=== PATIENT | male | born 1960 | race Caucasian/White ===

== ENCOUNTER 2021-10-13 06:55 | Day surgery (SDC) | payer BC ==
[~2021-10-13] VITALS: Ht 193 cm; Wt 89.2 kg
[~2021-10-13 06:55] MED LIST: ANTIVERT 25MG25 MG PO; NO HOME MEDICATIONS; PHENERGAN 25 TA25 MG PO
[2021-10-13] MEDS ORDERED: COZAAR 25MG25 MG/TAB PO (07:35)
[2021-10-13] MEDS ORDERED: VITAMIN C500 MG PO (07:36)
[2021-10-13 09:20] VITALS: BP 101/73; PULSE 48; TEMP 97
--- NOTE | 2021-10-13 09:27 | NUR ---
0920 - PT arrives and ambulated 2:1 from cart to chair; non-slip are on. Monitors and warm blankets applied. PT denies nausea and pain. VSS. Verbal room report obtained. PT requested RN call Sharon for update. PT oriented to room and call andersen, within reach.
[2021-10-13 09:35] VITALS: BP 114/76; PULSE 45
--- NOTE | 2021-10-13 09:38 | NUR ---
0935 - RN contacted Sharon, and she was brought in from the waiting room. VSS. PT denies nausea and pain. NO vomiting; expressed desire to be discharged. Call andersen remains within reach; PT has finished his snack and continues to drink coffee.
[2021-10-13 09:50] VITALS: BP 113/78; PULSE 44
[2021-10-13 09:59] VITALS: BP 133/85; PULSE 50; TEMP 97.8
--- NOTE | 2021-10-13 10:06 | NUR ---
0950 - has spoked w/ the PT. VSS. IV discontinued. Catheter tip intact. PRessure bandage applied; no redness or swelling noted. DC instructions and educational material reviewed with the PT, who verbalized understanding and signed the related paperwork. Questions answered to PT satisfaction. PT refused RN assistance changing; call andersen remains within reach. Sharon remains present.
--- NOTE | 2021-10-13 10:18 | NUR ---
1010 - PT dismissed from endo via wheelchair to the PT entrence by Beatrice PRYOR. PT's has DC packet and personal belonings of PT; and was transferred into the care of Sharon, who is driving private car.
== END 2021-10-13 10:15 ==
LOC: SDCO 06:55
DX: Z12.11 Encounter for screening for malignant neoplasm of colon (principal); D12.2 Benign neoplasm of ascending colon; K64.0 First degree hemorrhoids
CPT/HCPCS: J2704